=== PATIENT | female | born 1985 | race Caucasian/White ===

== ENCOUNTER 2018-03-26 10:12 | Emergency (ER) | payer MEDICAID, OTHER ==
[~2018-03-26] VITALS: Ht 162.6 cm; Wt 79.0 kg
[2018-03-26 10:17] VITALS: BP 110/70
[2018-03-26] MEDS ORDERED: HYDR25TA11 PO (10:48)
[2018-03-26] MEDS ORDERED: CITA10TA4 PO (10:48)
[2018-03-26] MEDS ORDERED: KETOROLAC 30 MG/1 ML ONE (10:52)
[2018-03-26] MEDS ORDERED: KETOROLAC 30 MG/1 ML IM ONE (11:00)
== END 2018-03-26 11:28 | disposition home or self-care (01) ==
LOC: ED 11:22
DX: S46.811A Strain of other muscles, fascia and tendons at shoulder and upper arm level, right arm, initial encounter (principal); X50.3XXA Overexertion from repetitive movements, initial encounter; Y93.89 Activity, other specified; Y92.69 Other specified industrial and construction area as the place of occurrence of the external cause; Y99.8 Other external cause status; F17.200 Nicotine dependence, unspecified, uncomplicated
CPT/HCPCS: 96372; 99283; J1885